=== PATIENT | female | born 1990 | race Caucasian/White ===

== ENCOUNTER → 2021-09-16 | Outpatient (CLI) | payer OTHER ==
[~2021-09-16] MED LIST: IBUPROFEN600 MG PO
== END ==
LOC: RAD 10:45
DX: S02.2XXA Fracture of nasal bones, initial encounter for closed fracture (principal)
CPT/HCPCS: 70160

== ENCOUNTER 2021-11-18 17:06 | Emergency (ER) | payer OTHER ==
[2021-11-18 18:04] LABS: HEMOGLOBIN 10.5 gm/dl (12.3-15.3); RED BLOOD COUNT 3.89 M/UL (4.00-5.10); WHITE BLOOD COUNT 8.6 K/UL (4.5-11.0)
[2021-11-18 18:34] LABS: BUN/CREATININE RATIO 9 (0-10)
[2021-11-18] MEDS ORDERED: CEPHALEXIN500 M1 PO (20:59)
[2021-11-18] MEDS ORDERED: K-TAB ER20 MEQ PO (20:59)
== END 2021-11-18 21:16 | disposition home or self-care (01) ==
LOC: ER1 17:06
DX: N39.0 Urinary tract infection, site not specified (principal); E87.6 Hypokalemia; Z90.49 Acquired absence of other specified parts of digestive tract; F17.200 Nicotine dependence, unspecified, uncomplicated
CPT/HCPCS: 80053; 81001; 83605; 83690; 84703; 85025; 99284; Q9967